=== PATIENT | male | born 1950 | race Caucasian/White ===

== ENCOUNTER → 2023-08-26 11:02 | Outpatient (REF) | payer MEDICARE, OTHER, SELFPAY | LOC: HWRCS 11:02 | PROVIDERS: ATTENDING PHYSICIAN Internal Medicine Cardiovascular Disease; FAMILY PHYSICIAN Family Medicine | DX: R00.2 Palpitations (principal) | CPT/HCPCS: 93306 ==

== ENCOUNTER → 2023-08-26 12:05 | Outpatient (REF) | payer MEDICARE, OTHER, SELFPAY ==
[2023-08-26 13:11] LABS: Medical Necessity Pt Refused FOL B12 VITD
[2023-08-26 13:12] LABS: Urine Albumin Negative (Neg - Trace); Urine Bilirubin Negative (Negative); Urine Character Clear (Clear); Urine Color Yellow; Urine Glucose Negative (Negative); Urine Ketone Negative (Negative); Urine Leukocyte Negative (Negative); Urine Nitrite Negative (Negative); Urine Occult Blood Negative (Negative); Urine Urobilinogen Negative (Neg - 1+)
[2023-08-26 14:19] LABS: ALT (SGPT) 20 U/L (0-50); AST (SGOT) 28 U/L (17-59); Albumin 4.7 g/dl (3.5-5.0); Alkaline Phosphatase 75 U/L (38-126); Blood Urea Nitrogen 20 mg/dl (9-20); Calcium 10.1 mg/dl (8.4-10.2); Carbon Dioxide 29 mmol/L (22-30); Chloride 103 mmol/L (98-107); Glucose 91 mg/dl (70-99); HDL Cholesterol 59 mg/dl; LDL Cholesterol, Calculated 100 mg/dl; Potassium 4.5 mmol/L (3.5-5.1); Sodium 140 mmol/L (135-145); Total Bilirubin 0.8 mg/dl (0.2-1.3); Total Cholesterol 175 mg/dl (50-199); Total Protein 7.2 g/dl (6.3-8.2); Triglyceride 83 mg/dl (10-149); Very Low Density Lipoprotein 16 mg/dl (0-30); eGFR > 60.00
[2023-08-26 14:35] LABS: Free T4 1.25 ng/dl (0.78-2.19)
[2023-08-26 14:48] LABS: PSA, Total - Diagnostic 4.35 ng/ml (0.0-4.0); TSH 2.13 uIU/ml (0.47-4.68)
[2023-08-29 02:23] LABS: % Free Testosterone 1.2 % (1.6-2.9); Free Testosterone 50 pg/mL (47-244); Sex Hormone Binding Globulin 66 nmol/L (19-76); Total Testosterone 420 ng/dL (300-720)
== END ==
LOC: REG 12:05
PROVIDERS: ATTENDING PHYSICIAN Family Medicine
DX: R53.82 Chronic fatigue, unspecified (principal); Z51.81 Encounter for therapeutic drug level monitoring; N40.1 Benign prostatic hyperplasia with lower urinary tract symptoms; E78.2 Mixed hyperlipidemia
CPT/HCPCS: 36415; 80053; 80061; 81003; 84153; 84270; 84402; 84403; 84439; 84443

== ENCOUNTER → 2023-09-26 12:18 | Outpatient (REF) | payer MEDICARE, OTHER, SELFPAY ==
[2023-09-26 14:29] LABS: PSA, Total - Diagnostic 2.54 ng/ml (0.0-4.0)
== END ==
LOC: REG 12:18
PROVIDERS: ATTENDING PHYSICIAN Specialist; FAMILY PHYSICIAN Family Medicine
DX: R97.20 Elevated prostate specific antigen [PSA] (principal)
CPT/HCPCS: 36415; 84153

== ENCOUNTER → 2023-11-19 12:29 | Outpatient (REF) | payer MEDICARE, OTHER, SELFPAY ==
[2023-11-19 16:10] LABS: % Basophils 0.2 % (0-2); % Eosinophils 5.2 % (0-6); % Immature Granulocytes 0.2 % (0-0.5); % Lymphocytes 25.1 % (20.5-51.1); % Monocytes 11.4 % (1.7-9.3); % Neutrophils 57.9 % (42.2-75.2); Absolute Eosinophils 0.3 10^3/uL (0-0.7); Absolute Lymphocytes 1.3 10^3/uL (1.2-3.4); Absolute Monocytes 0.6 10^3/uL (0.1-0.6); Absolute Neutrophils 2.9 10^3/uL (1.4-6.5); Hematocrit 38.2 % (39.0-52.0); Hemoglobin 13.1 g/dL (13.0-18.0); Mean Corp Hgb Conc. 34.3 g/dL (33.0-37.0); Mean Corpuscular Hgb 33.3 pg (27.0-31.0); Mean Corpuscular Volume 97.2 fL (80.0-94.0); Mean Platelet Volume 10.5 fL (7.4-10.4); Nucleated Red Blood Cells % 0 % (-); Platelet Count 224 10^3/uL (130-400); Red Blood Cell Count 3.93 10^6/uL (4.70-6.10)
[2023-11-19 16:31] LABS: Erythrocyte Sed Rate 7 mm/hour (0-20)
[2023-11-19 16:37] LABS: ALT (SGPT) 20 U/L (0-50); AST (SGOT) 25 U/L (17-59); Alkaline Phosphatase 74 U/L (38-126); Blood Urea Nitrogen 19 mg/dl (9-20); Calcium 9.2 mg/dl (8.4-10.2); Carbon Dioxide 27 mmol/L (22-30); Chloride 103 mmol/L (98-107); Glucose 91 mg/dl (70-99); Potassium 4.8 mmol/L (3.5-5.1); Sodium 138 mmol/L (135-145); Total Bilirubin 0.4 mg/dl (0.2-1.3); Total Protein 6.2 g/dl (6.3-8.2); eGFR > 60.00
[2023-11-19 16:42] LABS: C-Reactive Protein < 5.00 mg/L (0.0-10.00)
== END ==
LOC: REG 12:29
PROVIDERS: ATTENDING PHYSICIAN Internal Medicine; FAMILY PHYSICIAN Family Medicine
DX: M45.9 Ankylosing spondylitis of unspecified sites in spine (principal); Z51.81 Encounter for therapeutic drug level monitoring
CPT/HCPCS: 36415; 80053; 85025; 85652; 86140

== ENCOUNTER → 2023-11-28 14:28 | Outpatient (REF) | payer MEDICARE, OTHER, SELFPAY | LOC: RAD 14:28 | PROVIDERS: ATTENDING PHYSICIAN Internal Medicine; FAMILY PHYSICIAN Family Medicine | DX: R68.84 Jaw pain (principal) | CPT/HCPCS: 70330 ==

== ENCOUNTER → 2024-01-13 13:45 | Outpatient (REF) | payer MEDICARE, OTHER, SELFPAY | LOC: REG 13:45 | PROVIDERS: ATTENDING PHYSICIAN Internal Medicine; FAMILY PHYSICIAN Family Medicine | DX: R10.32 Left lower quadrant pain (principal) | CPT/HCPCS: 74019 ==

== ENCOUNTER → 2024-06-04 11:22 | Outpatient (REF) | payer MEDICARE, OTHER, SELFPAY | LOC: RAD 11:22 | PROVIDERS: ATTENDING PHYSICIAN Student in an Organized Health Care Education/Training Program | DX: R09.89 Other specified symptoms and signs involving the circulatory and respiratory systems (principal) | CPT/HCPCS: 71046 ==

== ENCOUNTER → 2024-09-18 09:52 | Outpatient (REF) | payer MEDICARE, OTHER, SELFPAY ==
[2024-09-18 10:36] LABS: % Basophils 0.6 % (0-2); % Eosinophils 4.6 % (0-6); % Immature Granulocytes 0.2 % (0-0.5); % Lymphocytes 29.2 % (20.5-51.1); % Monocytes 15.4 % (1.7-9.3); Absolute Eosinophils 0.2 10^3/uL (0-0.7); Absolute Lymphocytes 1.5 10^3/uL (1.2-3.4); Absolute Monocytes 0.8 10^3/uL (0.1-0.6); Absolute Neutrophils 2.5 10^3/uL (1.4-6.5); Hematocrit 41.1 % (39.0-52.0); Hemoglobin 13.8 g/dL (13.0-18.0); Mean Corp Hgb Conc. 33.6 g/dL (33.0-37.0); Mean Corpuscular Hgb 32.9 pg (27.0-31.0); Mean Corpuscular Volume 97.9 fL (80.0-94.0); Mean Platelet Volume 10.5 fL (7.4-10.4); Nucleated Red Blood Cells % 0 % (-); Platelet Count 242 10^3/uL (130-400); Red Cell Dist. Width 12.9 % (11.5-14.5)
[2024-09-18 11:47] LABS: ALT (SGPT) 17 U/L (0-50); AST (SGOT) 21 U/L (17-59); Albumin 4.3 g/dl (3.5-5.0); Alkaline Phosphatase 78 U/L (38-126); Blood Urea Nitrogen 14 mg/dl (9-20); Calcium 9.7 mg/dl (8.4-10.2); Carbon Dioxide 31 mmol/L (22-30); Chloride 107 mmol/L (98-107); Glucose 93 mg/dl (70-99); HDL Cholesterol 34 mg/dl; Iron 213 ug/dl (49-181); LDL Cholesterol, Calculated 88 mg/dl; Potassium 4.5 mmol/L (3.5-5.1); Sodium 143 mmol/L (135-145); Total Bilirubin 0.8 mg/dl (0.2-1.3); Total Cholesterol 145 mg/dl (50-199); Total Protein 7.2 g/dl (6.3-8.2); Triglyceride 115 mg/dl (10-149); Very Low Density Lipoprotein 23 mg/dl (0-30); eGFR > 60.00
[2024-09-18 11:56] LABS: Percent Saturation 62 % (20-50); Total Iron Binding Capacity 340 ug/dl (261-462)
[2024-09-18 12:11] LABS: Ferritin 91.9 ng/ml (17.9-464.0)
[2024-09-18 12:25] LABS: Glycohemoglobin (HgbA1c) 5.5 % (4.0-5.6)
== END ==
LOC: REG 09:52
PROVIDERS: ATTENDING PHYSICIAN Student in an Organized Health Care Education/Training Program
DX: Z00.00 Encounter for general adult medical examination without abnormal findings (principal); E78.2 Mixed hyperlipidemia; R21 Rash and other nonspecific skin eruption; Z79.899 Other long term (current) drug therapy; K21.01 Gastro-esophageal reflux disease with esophagitis, with bleeding
CPT/HCPCS: 36415; 80053; 80061; 82728; 83036; 83540; 83550; 85025

== ENCOUNTER → 2024-10-09 15:55 | Outpatient (REF) | payer MEDICARE, OTHER, SELFPAY | LOC: CLAB 15:55 | PROVIDERS: ATTENDING PHYSICIAN Specialist | DX: N41.0 Acute prostatitis (principal) | CPT/HCPCS: 87086 ==

== ENCOUNTER → 2024-11-03 13:58 | Outpatient (REF) | payer MEDICARE, OTHER, SELFPAY ==
[2024-11-03 15:04] LABS: C-Reactive Protein < 5.00 mg/L (0.0-10.00)
== END ==
LOC: REG 13:58
PROVIDERS: ATTENDING PHYSICIAN Internal Medicine; FAMILY PHYSICIAN Student in an Organized Health Care Education/Training Program
DX: M45.9 Ankylosing spondylitis of unspecified sites in spine (principal)
CPT/HCPCS: 36415; 85652; 86140

== ENCOUNTER → 2024-11-13 13:29 | Outpatient (REF) | payer MEDICARE, OTHER, SELFPAY | LOC: RAD 13:29 | PROVIDERS: ATTENDING PHYSICIAN Otolaryngology; FAMILY PHYSICIAN Student in an Organized Health Care Education/Training Program | DX: J32.0 Chronic maxillary sinusitis (principal) | CPT/HCPCS: 70486 ==

== ENCOUNTER → 2024-12-29 13:52 | Outpatient (REF) | payer MEDICARE, OTHER, SELFPAY ==
[2024-12-29 16:23] LABS: PSA, Total - Diagnostic 3.90 ng/ml (0.0-4.0)
== END ==
LOC: REG 13:52
PROVIDERS: ATTENDING PHYSICIAN Specialist; FAMILY PHYSICIAN Internal Medicine; REFERRING PHYSICIAN Student in an Organized Health Care Education/Training Program
DX: N40.1 Benign prostatic hyperplasia with lower urinary tract symptoms (principal); M25.50 Pain in unspecified joint
CPT/HCPCS: 36415; 70330; 84153

== ENCOUNTER → 2025-01-26 12:01 | Outpatient (REF) | payer MEDICARE, OTHER, SELFPAY ==
[2025-01-28 23:57] LABS: EBV-EA (D) Ab IgG 17.1 U/mL (<=8.9); EBV-NA IgG 24.5 U/mL (<=17.9); EBV-VCA IgG Antibodies 98.9 U/mL (<=17.9); EBV-VCA IgM Antibodies <10.0 U/mL (<=35.9)
[2025-01-29 04:36] LABS: CMV Qnt NAAT Plasma Log IU/mL Not Detected log IU/mL; CMV Quant NAAT Plasma Interp Not Detected (Not Detected); CMV Quant by NAAT Plasma IU/mL Not Detected
== END ==
LOC: REG 12:01
PROVIDERS: FAMILY PHYSICIAN Student in an Organized Health Care Education/Training Program
DX: U09.9 Post COVID-19 condition, unspecified (principal); J32.8 Other chronic sinusitis; J42 Unspecified chronic bronchitis; J30.5 Allergic rhinitis due to food; D89.40 Mast cell activation, unspecified; R53.83 Other fatigue; R63.4 Abnormal weight loss; E29.1 Testicular hypofunction; E55.9 Vitamin D deficiency, unspecified; R05.3 Chronic cough
CPT/HCPCS: 36415; 82784; 82785; 83088; 83520; 86160; 86663; 86664; 86665; 86753; 87497